=== PATIENT | female | born 1950 | race Caucasian/White ===

== ENCOUNTER 2017-07-12 12:02 | Emergency (ER) | payer OTHER ==
[~2017-07-12] VITALS: Ht 165.1 cm; Wt 70.3 kg
[2017-07-12 12:35] LABS: Basophils # (auto) 0.1 uL; Basophils % (auto) 0.7 % (0.0-2.0); Eosinophils # (auto) 0.1 uL; Eosinophils % (auto) 1.3 % (0.0-7.0); Hematocrit 43.3 % (36.0-46.0); Hemoglobin 14.7 g/dL (12.2-16.2); Lymphocytes % (auto) 33.5 % (10.0-50.0); Mean Corpuscular Hemoglobin 31.8 pg (28.0-32.0); Mean Corpuscular Volume 93.5 fL (80.0-100.0); Mean Platelet Volume 6.6 fL (6.9-10.8); Monocytes # (auto) 0.8 uL; Monocytes % (auto) 8.8 % (0.0-12.0); Neutrophils % (auto) 55.7 % (37.0-80.0); Platelet Count (auto) 392 10^3/uL (140-450); Red Cell Distribution Width 14.2 % (11.8-14.3)
[2017-07-12 12:39] VITALS: BP 177/118
[2017-07-12] MEDS ORDERED: cloNIDine HCL 0.1 MG TAB PO ONE (12:45)
[2017-07-12 12:52] LABS: INR 1.01 (0.9-1.15); Partial Thromboplastin Time 28.5 sec (22.64-33.71)
[2017-07-12] MEDS ORDERED: ATOR10TA PO (12:54)
[2017-07-12] MEDS ORDERED: LEVO50TA7 PO (12:54)
[2017-07-12] MEDS ORDERED: VENL150C PO (12:54)
[2017-07-12 13:11] LABS: B-Type Natriuretic Peptide 26.9 pg/mL (0-100); Temperature: 21.5 C (20.0-25.0)
[2017-07-12] MEDS ORDERED: MORPHINE SULF INJ 2 MG/ML SYRINGE 1ML IV ONE (13:15)
[2017-07-12] MEDS ORDERED: ONDANSETRON HCL 4 MG/2 ML VIAL IV ONE (13:15)
[2017-07-12] MEDS ORDERED: ASPirin 81 mg TAB PO ONE (13:15)
[2017-07-12 14:11] LABS: Urine Bilirubin Negative (Negative); Urine Blood Negative /uL (Negative); Urine Color Yellow (Yellow); Urine Glucose Normal (Normal); Urine Ketone TRACE (Negative); Urine Nitrite Negative (Negative); Urine RBC 2 /hpf (0 - 4); Urine Squamous Epithelial Cell FEW /hpf (<5); Urine Urobilinogen Normal (Negative); Urine pH 5.5 (5.0-8.0)
[2017-07-12 14:42] LABS: Alkaline Phosphatase 75 U/L (45-117); Anion Gap 6 (5-15); Aspartate Aminotransferase 11 U/L (15-37); Bilirubin, Total 0.4 mg/dL (0.2-1.0); Calcium 8.6 mg/dL (8.5-10.1); Carbon Dioxide 25 mmol/L (21-32); Chloride 109 mmol/L (98-107); GFR African American 134 mL/min; GFR Non-African American 111 mL/min; Glucose 91 mg/dL (74-106); Magnesium 2.5 mg/dL (1.6-2.6); Potassium 3.7 mmol/L (3.5-5.1); Sodium 140 mmol/L (136-145); Total Protein 7.4 g/dL (6.4-8.2)
[2017-07-12 14:47] LABS: BUN/Creatinine Ratio 15.5; Blood Urea Nitrogen 9 mg/dL (7-18)
== END 2017-07-12 15:08 | disposition home or self-care (01) ==
LOC: ER 12:02 → EDBD 12:02 → ER 15:08
DX: I10 Essential (primary) hypertension (principal); E07.89 Other specified disorders of thyroid; E78.5 Hyperlipidemia, unspecified
CPT/HCPCS: 36415; 71010; 80053; 81001; 83735; 83880; 84484; 85025; 85610; 85730; 93005